=== PATIENT | female | born 1955 | race Caucasian/White ===

== ENCOUNTER 2025-01-07 14:52 | Outpatient (CLI) | payer MEDICARE, SELFPAY ==
--- NOTE | ~2025-01-07 | XR_ITS ---
EXAMINATION: XR chest 2V Exam Date/Time: 01/07/2025 15:10 CDT HISTORY: ACUTE BRONCHITIS WITH COPD Comparison: None. RESULT: Lines, tubes, and devices: Cholecystectomy clips. Lungs and pleura: Clear. Cardiomediastinal silhouette: Unremarkable. Other: No acute osseous or upper abdominal finding. IMPRESSION: No acute cardiopulmonary process. Reviewed, dictated and finalized at location K.
--- OUTSIDE RECORDS SUMMARY | 2025-01-07 15:04 | XMS_ITS | Clinical Summary ---
Author Organization [facility] Address Formerly [facility] [place] [address] Care Team Providers Care Adapted Physical Education Specialist Name Role Phone Senthil Garcia MD Primary Care Provider [phone] Allergies No known active allergies Medications albuterol (2.5 MG/3ML) 0.083% nebulizer solution USE 1 VIAL VIA NEBULIZER 3 TO 4 TIMES D PRN FOR SHORTNESS OF BREATH 0 9 Active VENTOLIN HFA 108 (90 Base) MCG/ACT inhalerIndication s:Prevention of COPD Exacerbation Inhale 2 puffs into the lungs every 4 (four) hours as needed. Indications: Prevention of COPD Worsening 1 9 Active citalopram 20 MG tablet Take 1 tablet (20 mg total) by mouth daily. 0 9 Active ipratropium 0.02 % nebulizer solution USE 1 VIAL VIA NEBULIZER QID PRN - TO MIX WITH ALBUTEROL FOR SHORTNESS OF BREATH 0 9 Active LOTEMAX 0.5 % ophthalmic gel INSTILL 1 DROP EVERY MORNING IN RIGHT EYE AND LEFT EYE 2 9 Active omeprazole 40 MG capsule Take 1 capsule (40 mg total) by mouth daily. 3 9 Active Vitamin D3 (VITAMIN D) 50 mcg tablet Take 1 tablet (50 mcg total) by mouth daily. Active alendronate (FOSAMAX) 70 MG tablet Take 1 tablet (70 mg total) by mouth every 7 days. Active rosuvastatin (CRESTOR) 10 MG tablet Take 1 tablet (10 mg total) by mouth daily. 3 Active montelukast (SINGULAIR) 10 MG tablet Take 1 tablet (10 mg total) by mouth daily. 3 Active Active Problems No known active problems Family History Medical History Relation Comments Breast Cancer Maternal Aunt 1 Breast Cancer Maternal Aunt 2 Breast Cancer Other Cancer Sister Relation Status Comments Maternal Aunt 1 Maternal Aunt 2 Other Alive Sister Social History Tobacco Use Types Packs/Day Years Used Date Smoking Tobacco: Every Day Cigarettes Smokeless Tobacco: Never Alcohol Use Standard Drinks/Week Comments Yes 0 (1 standard drink = 0.6 oz pur e alcohol) Comments No Sex and Gender Information Value Date Recorded Sex Assigned at Not on file Legal Sex Female 5:44 PM 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 Gender Identity Female 10/26/2021 5:16 AM [employer]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 Sexual Orientation Not on file Last Filed Vital Signs Vital Sign Reading Time Taken Comments Blood Pressure 137/64 05/24/2023 10:33 AM CDT Pulse 63 05/24/2023 10:33 AM CDT Temperature 35.6 C (96.1 F) 05/24/2023 10:33 AM CDT Respiratory Rate 16 05/24/2023 10:33 AM CDT Oxygen Saturation 95% 05/24/2023 10:33 AM CDT Inhaled Oxygen Concentration - - Weight 63.5 kg (140 lb) 05/19/2023 10:32 AM CDT Height 160 cm (5' 3 ) 05/19/2023 10:32 AM CDT Body Mass Index 24.8 05/19/2023 10:32 AM CDT Plan of Treatment Health Maintenance Due Date Last Done Comments Hepatitis C 1971 DTaP, Tdap and Td Vaccines (1 - Tdap) 1972 Zoster Vaccines (2 of 3) 12/19/2014 10/24/2014 Pneumococcal Vaccine: 50+ Years (2 of 2 - PPSV23) 03/06/2015 01/09/2015 Annual Medicare Wellness Visit 2018 COVID-19 Vaccine ( - season) 2024 Mammogram Screening 05/03/2026 05/03/2024, 2 RSV Immunization or 60+ Years (1 - 1-dose 75+ series) 2028 Colorectal Cancer Screening Colonoscopy (10 Years) 05/24/2033 05/24/2023, 05/24/2023, 08/07/2019, Additional history exists Dexa Scan (General) Completed 05/03/2024, 2 Meningococcal B Vaccine Aged Out No l onger eligible based on patient's age to complete this topic Meningococcal Vaccine Aged Out No marietta lg eligible based on patient's age to complete this topic RSV Immunizations Under 20 Months Aged Out No longer eligible based on patient's age to complete this topic Procedures Procedure Name Priority Date/Time Associated Diagnosis Comments MG SCREENING W AKASH YOU DIGI Routine 05/03/2024 2:35 PM CDT Encounter for screening mammogram for malignant neoplasm of breast BONE DENSITY/DEXA Routine 05/03/2024 1:3 1 PM CDT Postmenopausal COLONOSCOPY 05/24/2023 6:49 AM CDT from Last 3 Months or Most Recently Relevant to Health Maintenance Results * MG SCREENING W AKASH YOU DIGI (05/03/2024 2:35 PM CDT) Anatomical Region Laterality Modality Breast Bilateral Mammography 05/03/2024 2:57 PM CDT Impressions 05/03/2024 2:58 PM CDT IMPRESSION: No suspicious mammographic findings. Recommendation: 1. Routine Screening, Bilateral Assessment: ACR BI-RADS 2 - BENIGN FINDING(S) Ordered By: SENTHIL GARCIA Interpreted By: Kurt Ball MD, 05/03/2024 2:57 PM Narrative 05/03/2024 2:58 PM [address]T [address] [place] [address] Examination: Screening bilateral mammogram Clinical history: Screening Comparison: Priors including April 2022, October 2016. Technique: Digital screening mammography of both breasts was performed. Breast tomosynthesis acquisitions were obtained and reviewed. This study was read with the assistance of a computer-aided detection system. Tissue density: There are scattered areas of fibroglandular density. Findings: No suspicious masses, malignant appearing calcifications, skin thickening or other abnormalities are present. No significant change from the prior exam. us Senthil Garcia MD MAMMO Final Resul t * BONE DENSITY/DEXA (05/03/2024 1:31 PM CDT) Anatomical Region Laterality Modality Bone Bone Density 05/03/2024 2:54 PM CDT Impressions 05/03/2024 2:58 PM CDT Impression: BMD measured at left femoral neck at WHO category level of osteoporosis. BMD measured at right femoral neck, both total hips and AP lumbar spine at level of osteopenia. BMD measured at AP lumbar spine and both total hips increased since study 10/26/2021. Ordered By: SENTHIL GARCIA Interpreted By: Ming Prince MD, 05/03/2024 2:54 PM Narrative 05/03/2024 2:58 PM CDT [address] [place] [address] Examination: DEXA Bone densitometry EXAM DATE: 05/03/2024 1:31 PM Clinical history: Postmenopausal. History of rheumatoid arthritis. Prior hysterectomy. History of hormone replacement therapy. Calcium supplementation. Vitamin D use. Dairy product consumption. Technique: DEXA bone minimal density evaluation was performed in the AP projection over the lumbar spine and over both hips in the AP projection utilizing standard imaging techniques. Assessment: The BMD measured at the AP spine L1-L4 is 0.814 g/cm2 with a T-score of -2.1 and a Z-Score of 0.0. The patient is considered osteopenic according to World Health Organization (WHO) criteria. Bone density is between 10 and 25% below young normal. Fracture risk is moderate. Treatment is advised. The BMD measured at the AP lumbar spine has increased 0.083 g/sq cm since study 10/26/2021. The BMD measured at the femur total left is 0.698 g/cm2 with a T-score of -2.0 and a Z-Score of -0.5. The patient is considered osteopenic according to World Health Organization (WHO) criteria. Bone density is between 10 and 25% below young normal. Fracture risk is moderate. Treatment is advised. The BMD measured at the left total hip has increased 0.030 g/sq cm since study 10/26/2021. The BMD measured at the left femoral neck is 0.540 g/sq cm resulting in a T score of -2.8 and a Z score of -0.9, values at the WHO category level of osteoporosis. The BMD measured at the femur total right is 0.722 g/cm2 with a T-score of -1.8 and aZ-Score of -0.3. The patient is considered osteopenic according to World Health Organization (WHO) criteria. Bone density is between 10 and 25% below young normal. Fracture risk is moderate. Treatment is advised. The BMD measured at the right total hip has increased 0.025 g/sq cm since study 10/26/2021. The BMD measured at the right femoral neck is 0.5x6 g/sq cm resulting in a T score of -2.3 and a Z score of -0.4, values at the WHO category level of osteopenia. FRAX results: 10 year probability of major osteoporotic fracture 25% and of hip fracture 7.9%. Recommendations: All patients should ensure an adequate intake of dietary calcium and vitamin D. The NOF recommend adults under the age of 50 need 1000 mg of calcium and 400-800 IU of vitamin D daily. Effective therapy for the prevention and treatment of osteoporosis include biphosphonates. Follow-up: People with diagnosed cases of osteoporosis or at high risk for fracture should have regular bone mineral density test. For patients eligible for Medicare, routine testing is allowed once every 2 years. Testing frequency can be increased to one year for patients who have rapidly progressing disease, those who are receiving or discontinuing medical therapy to restore bone mass, or have additional risk factors. Based on these results, a followup exam is recommended in no earlier than 2 years for routine follow-up. As early as 1 year to assess efficacy of new medication therapy for treatment of osteoporosis. Procedure Note Ming Prince MD - 05/03/[address] [place] [address] Examination: DEXA Bone densitometry EXAM DATE: 05/03/2024 1:31 PM Clinical history: Postmenopausal. History of rheumatoid arthritis. Priorhysterectomy. History of hormone replacement therapy. Calciumsupplementation. Vitamin D use. Dairy product consumption. Technique: DEXA bone minimal density evaluation was performed in the APprojection over the lumbar spine and over both hips in the AP projectionutilizing standard imaging techniques. Assessment: The BMD measured at the AP spine L1-L4 is 0.814 g/cm2 with a T-score of-2.1 and a Z-Score of 0.0. The patient is considered osteopenicaccording to World Health Organization (WHO) criteria. Bone density isbetween 10 and 25% below young normal. Fracture risk is moderate.Treatment is advised. The BMD measured at the AP lumbar spine has increased 0.083 g/sq cm sincestudy 10/26/2021. The BMD measured at the femur total left is 0.698 g/cm2 with a T-score of-2.0 and a Z-Score of -0.5. The patient is considered osteopenicaccording to World Health Organization (WHO) criteria. Bone density isbetween 10 and 25% below young normal. Fracture risk is moderate.Treatment is advised. The BMD measured at the left total hip has increased 0.030 g/sq cm sincestudy 10/26/2021. The BMD measured at the left femoral neck is 0.540 g/sq cm resulting in aT score of -2.8 and a Z score of -0.9, values at the WHO category level ofosteoporosis. The BMD measured at the femur total right is 0.722 g/cm2 with a T-score of-1.8 and aZ-Score of -0.3. The patient is considered osteopenicaccording to World Health Organization (WHO) criteria. Bone density isbetween 10 and 25% below young normal. Fracture risk is moderate.Treatment is advised. The BMD measured at the right total hip has increased 0.025 g/sq cm sincestudy 10/26/2021. The BMD measured at the right femoral neck is 0.5x6 g/sq cm resulting in aT score of -2.3 and a Z score of -0.4, values at the WHO category level ofosteopenia. FRAX results: 10 year probability of major osteoporotic fracture 25% andof hip fracture 7.9%. Recommendations: All patients should ensure an adequate intake of dietary calcium andvitamin D. The NOF recommend adults under the age of 50 need 1000 mg ofcalcium and 400-800 IU of vitamin D daily. Effective therapy for theprevention and treatment of osteoporosis include biphosphonates. Follow-up: People with diagnosed cases of osteoporosis or at high risk for fractureshould have regular bone mineral density test. For patients eligible forMedicare, routine testing is allowed once every 2 years. Testing frequencycan be increased to one year for patients who have rapidly progressingdisease, those who are receiving or discontinuing medical therapy torestore bone mass, or have additional risk factors. Based on these results, a followup exam is recommended in no earlier than2 years for routine follow-up. As early as 1 year to assess efficacy ofnew medication therapy for treatment of osteoporosis. Impression: BMD measured at left femoral neck at WHO category level of osteoporosis. BMD measured at right femoral neck, both total hips and AP lumbar spine atlevel of osteopenia. BMD measured at AP lumbar spine and both total hips increased since study10/26/2021. Ordered By: SENTHIL GARCIA Interpreted By: Ming Prince MD, 05/03/2024 2:54 PM us Senthil Garcia MD DEXA Final Resul t * Colonoscopy (05/24/2023 6:49 AM CDT) us Ed Covington MD GI PROCEDURE ORDERABLES Final Result from Last 3 Months or Most Recently Relevant to Health Maintenance Insurance [employer] Care Teams Adapted Physical Education Specialist Relationship Specialty Start Date End Date Senthil Garcia MD [address] [place] [phone] PCP - General FAMILY PRACTICE 10/26/21
== END 2025-01-07 14:53 | disposition home or self-care (01) ==
LOC: CHSIMG 15:01
PROVIDERS: PCP Family Medicine; Visit Provider Family Medicine
DX: J44.0 Chronic obstructive pulmonary disease with (acute) lower respiratory infection (principal)
CPT/HCPCS: 71046